=== PATIENT | female | born 1955 | race Caucasian/White ===

== ENCOUNTER → 2022-07-12 14:15 | Outpatient (CLI) | payer OTHER, SELFPAY | PROVIDERS: PCP Family Medicine; Referring Provider Family Medicine; Visit Provider Family Medicine | DX: Z13.820 Encounter for screening for osteoporosis (principal); M85.852 Other specified disorders of bone density and structure, left thigh; Z78.0 Asymptomatic menopausal state; E78.2 Mixed hyperlipidemia; I10 Essential (primary) hypertension; M17.12 Unilateral primary osteoarthritis, left knee; N95.2 Postmenopausal atrophic vaginitis; R73.03 Prediabetes; Z79.890 Hormone replacement therapy | CPT/HCPCS: 77080 ==

== ENCOUNTER → 2022-08-13 09:36 | Outpatient (CLI) | payer OTHER, SELFPAY ==
[2022-08-13 10:17] LABS: Add Manual Diff / Slide Review NO; Basophils Absolute Auto 100 /uL (0-100); Basophils Percent Auto 0.8 % (0-2); Eosinophils Absolute Auto 200 /uL (0-450); Eosinophils Percent Auto 2.4 % (2-4); Hematocrit 46.1 % (36-46); Hemoglobin 15.6 g/dL (12.0-16.0); Lymphocytes Absolute Auto 1900 /uL (1100-4500); Lymphocytes Percent Auto 30.1 % (25-40); Mean Corpuscular HGB Conc 33.8 % (30-36); Mean Corpuscular Hemoglobin 27.1 PG (26-34); Mean Corpuscular Volume 80.2 fL (80-100); Monocytes Absolute Auto 600 /uL (0-900); Monocytes Percent Auto 9.4 % (3-14); Neutrophils Absolute Auto 3600 /uL (1500-7000); Neutrophils Percent Auto 57.3 % (50-75); Platelet Count 297 X10^3/uL (150-400); Red Blood Cell Count 5.75 X10^6/uL (4.0-5.2); Red Cell Distribution Width 13.2 % (11.6-14.8); White Blood Cell Count 6.4 X10^3/uL (4.5-11.0)
[2022-08-13 10:32] LABS: Alanine Aminotransferase 17 IU/L (<35); Albumin 4.1 g/dL (3.5-5.0); Albumin Globulin Ratio 1.4 (1.0-2.8); Alkaline Phosphatase 109 U/L (38-126); Aspartate Aminotransferase 23 IU/L (14-36); BUN Creatinine Ratio 13.4 (6-22); Bilirubin Total 0.4 mg/dL (0.2-1.3); Blood Urea Nitrogen 13 mg/dL (7-17); Calcium 9.4 mg/dL (8.4-10.2); Carbon Dioxide 24 mmol/L (22-32); Chloride 108 mmol/L (98-107); Cholesterol 199 mg/dL (140-199); Estimated Glomerular Filt Rate > 60 mL/min (>60); Glucose 112 mg/dL (80-110); HDL Cholesterol 61 mg/dL (40-60); HEMOLYSIS < 15 (0-50); LDL Cholesterol Calculated 108 mg/dL (<100); Potassium 4.2 mmol/L (3.4-5.1); Sodium 140 mmol/L (137-145); Total Protein 7.1 g/dL (6.3-8.2); Triglycerides 151 mg/dL (35-150)
[2022-08-13 11:04] LABS: TSH w/ Reflex to FT4 1.98 uIU/mL (0.47-4.68)
[2022-08-13 11:25] LABS: Microalbumi Creatinin Ratio Ur 18.4 ug/mg CR (<30); Microalbumin Urine Random 5.2 mg/dL (0-1.6)
== END ==
PROVIDERS: PCP Family Medicine; Referring Provider Family Medicine; Visit Provider Family Medicine
DX: E78.2 Mixed hyperlipidemia (principal); I10 Essential (primary) hypertension; M17.12 Unilateral primary osteoarthritis, left knee; N95.1 Menopausal and female climacteric states; N95.2 Postmenopausal atrophic vaginitis; R73.03 Prediabetes
CPT/HCPCS: 36415; 80053; 80061; 82043; 82570; 84443; 85025

== ENCOUNTER → 2022-08-24 16:25 | Outpatient (CLI) | payer OTHER, SELFPAY ==
--- NOTE | 2022-08-24 16:27 | DI.MG.S_ITS ---
BILATERAL DIGITAL SCREENING MAMMOGRAM 3D/2D WITH CAD: 08/24/2022 CLINICAL: Routine screening. Comparison is made to exams dated: 01/12/2021 mammogram, 12/09/2018 mammogram, and 09/11/2017 mammogram - outside facility. Both breasts are almost entirely fatty (category a/<25% glandular tissue). Current study was also evaluated with a Computer Aided Detection (CAD) system. There is a stable benign focal asymmetry in the left breast. No significant masses, calcifications, or other findings are seen in either breast. There has been no significant interval change. IMPRESSION: BENIGN There is no mammographic evidence of malignancy. A 1 year screening mammogram is recommended. Based on the Tyrer Cuzick model (a risk assessment model) the patient's lifetime risk is 4.0% and her 10 year risk is 2.4%. According to the ACR, ACS, and NCCN guidelines, an annual breast MRI exam along with mammogram is recommended if the patient's lifetime risk is 20% or greater. This exam was interpreted at Station ID: [id number]. NOTE: For mammograms, a report in lay terms will be sent to the patient. Approximately 15% of breast malignancies will not be visualized mammographically. In the management of a palpable breast mass, a negative mammogram must not discourage biopsy of a clinically suspicious lesion. Electronically Signed By: Hi lieberman/brayden:08/24/2022 17:25:56 letter sent: Normal Exam ACR BI-RADS Category 2: Benign Finding(s) 3342F
== END ==
PROVIDERS: PCP Family Medicine; Referring Provider Family Medicine; Visit Provider Family Medicine
DX: Z12.31 Encounter for screening mammogram for malignant neoplasm of breast (principal)
CPT/HCPCS: 77063; 77067

== ENCOUNTER → 2022-10-09 13:26 | Outpatient (CLI) | payer OTHER, SELFPAY ==
[2022-10-09 14:21] LABS: Add Manual Diff / Slide Review NO; Basophils Absolute Auto 100 /uL (0-100); Basophils Percent Auto 0.8 % (0-2); Eosinophils Absolute Auto 100 /uL (0-450); Eosinophils Percent Auto 1.9 % (2-4); Hematocrit 47.2 % (36-46); Hemoglobin 15.6 g/dL (12.0-16.0); Lymphocytes Absolute Auto 1500 /uL (1100-4500); Lymphocytes Percent Auto 19.9 % (25-40); Mean Corpuscular HGB Conc 33.1 % (30-36); Mean Corpuscular Hemoglobin 26.9 PG (26-34); Mean Corpuscular Volume 81.1 fL (80-100); Monocytes Absolute Auto 700 /uL (0-900); Monocytes Percent Auto 9.8 % (3-14); Neutrophils Absolute Auto 5000 /uL (1500-7000); Neutrophils Percent Auto 67.6 % (50-75); Platelet Count 284 X10^3/uL (150-400); Red Blood Cell Count 5.82 X10^6/uL (4.0-5.2); White Blood Cell Count 7.4 X10^3/uL (4.5-11.0)
[2022-10-09 14:27] LABS: Hemoglobin A1C% w Est Avg Glu 5.7 % (4.0-6.0)
[2022-10-09 14:34] LABS: Albumin 4.2 g/dL (3.5-5.0); BUN Creatinine Ratio 15.1 (6-22); Blood Urea Nitrogen 16 mg/dL (7-17); Carbon Dioxide 25 mmol/L (22-32); Chloride 106 mmol/L (98-107); Estimated Glomerular Filt Rate 57 mL/min (>60); Glucose 96 mg/dL (80-110); HEMOLYSIS < 15 (0-50); Potassium 4.1 mmol/L (3.4-5.1); Sodium 140 mmol/L (137-145)
[2022-10-09 14:42] LABS: Prealbumin 29.4 mg/dL (17.6-36.0)
[2022-10-11 18:37] LABS: HIV 1 & 2 Ab/Ag 4th Gen Combo NEGATIVE (NEGATIVE); Hep C Virus Ab w/Reflex Quant NEGATIVE s/c (NEGATIVE)
== END ==
PROVIDERS: PCP Family Medicine; Referring Provider Orthopaedic Surgery; Visit Provider Orthopaedic Surgery
DX: Z01.812 Encounter for preprocedural laboratory examination (principal); Z01.810 Encounter for preprocedural cardiovascular examination; M17.12 Unilateral primary osteoarthritis, left knee
CPT/HCPCS: 36415; 80048; 82040; 83036; 84134; 85025; 86803; 87389; 93005; 93010

== ENCOUNTER → 2023-09-25 16:49 | Outpatient (CLI) | payer OTHER, SELFPAY ==
--- NOTE | 2023-09-25 16:50 | DI.MG.S_ITS ---
BILATERAL DIGITAL SCREENING MAMMOGRAM 3D/2D WITH CAD: 09/25/2023 CLINICAL: Routine screening. Comparison is made to exams dated: 08/24/2022 mammogram - [facility], 01/12/2021 mammogram, and 12/09/2018 mammogram - outside facility. There are scattered areas of fibroglandular density in both breasts (category b / 25%-50% glandular tissue). Current study was also evaluated with a Computer Aided Detection (CAD) system. There is a stable benign focal asymmetry in the left breast. No significant masses, calcifications, or other findings are seen in either breast. There has been no significant interval change. IMPRESSION: BENIGN There is no mammographic evidence of malignancy. A 1 year screening mammogram is recommended. Based on the Tyrer Cuzick model (a risk assessment model) the patient's lifetime risk is 5.7% and her 10 year risk is 3.7%. According to the ACR, ACS, and NCCN guidelines, an annual breast MRI exam along with mammogram is recommended if the patient's lifetime risk is 20% or greater. This exam was interpreted at Station ID: [id number]. NOTE: For mammograms, a report in lay terms will be sent to the patient. Approximately 15% of breast malignancies will not be visualized mammographically. In the management of a palpable breast mass, a negative mammogram must not discourage biopsy of a clinically suspicious lesion. Electronically Signed By: Raymundo allen/brayden:09/26/2023 08:32:40 letter sent: Normal Exam ACR BI-RADS Category 2: Benign Finding(s) 3342F
== END ==
PROVIDERS: PCP Family Medicine; Referring Provider Family Medicine; Visit Provider Family Medicine
DX: Z12.31 Encounter for screening mammogram for malignant neoplasm of breast (principal)
CPT/HCPCS: 77063; 77067

== ENCOUNTER → 2023-12-10 11:30 | Outpatient (CLI) | payer OTHER, SELFPAY ==
--- NOTE | 2023-12-10 11:32 | DI.RAD.S_ITS ---
PROCEDURE: XR SHOULDER RT MIN 2V INDICATIONS: right shoulder pain TECHNIQUE: 3 views of the shoulder were acquired. COMPARISON: None. FINDINGS: Bones: No fractures or dislocations. Moderate degenerative changes. No suspicious bony lesions. Visualized ribs appear intact. Soft tissues: No suspicious soft tissue calcifications. IMPRESSION: No acute bony abnormality. Dictated by: Jimmie Baldwin M.D. on 12/10/2023 at 16:26 Approved by: Jimmie Baldwin M.D. on 12/10/2023 at 16:27
[2023-12-10 12:44] LABS: Add Manual Diff / Slide Review NO; Basophils Absolute Auto 100 /uL (0-100); Basophils Percent Auto 1.1 % (0-2); Eosinophils Absolute Auto 100 /uL (0-450); Eosinophils Percent Auto 2.4 % (2-4); Hematocrit 45.1 % (36-46); Hemoglobin 15.2 g/dL (12.0-16.0); Lymphocytes Absolute Auto 1300 /uL (1100-4500); Lymphocytes Percent Auto 22.6 % (25-40); Mean Corpuscular HGB Conc 33.8 % (30-36); Mean Corpuscular Volume 79.9 fL (80-100); Monocytes Absolute Auto 600 /uL (0-900); Neutrophils Absolute Auto 3700 /uL (1500-7000); Neutrophils Percent Auto 62.9 % (50-75); Platelet Count 266 X10^3/uL (150-400); Red Blood Cell Count 5.64 X10^6/uL (4.0-5.2); Red Cell Distribution Width 13.5 % (11.6-14.8); White Blood Cell Count 5.9 X10^3/uL (4.5-11.0)
[2023-12-10 13:23] LABS: HEMOLYSIS < 15 (0-50); Potassium 3.9 mmol/L (3.4-5.1)
[2023-12-10 13:24] LABS: Alanine Aminotransferase 20 IU/L (<35); Albumin 4.3 g/dL (3.5-5.0); Albumin Globulin Ratio 1.4 (1.0-2.8); Alkaline Phosphatase 96 U/L (38-126); Aspartate Aminotransferase 30 IU/L (14-36); BUN Creatinine Ratio 15.4 (6-22); Bilirubin Total 0.6 mg/dL (0.2-1.3); Blood Urea Nitrogen 16 mg/dL (7-17); Calcium 9.7 mg/dL (8.4-10.2); Carbon Dioxide 27 mmol/L (22-32); Chloride 109 mmol/L (98-107); Cholesterol 228 mg/dL (140-199); Estimated Glomerular Filt Rate 58 mL/min (>60); Globulin 3.1 g/dL (1.7-4.1); Glucose 105 mg/dL (80-110); HDL Cholesterol 58 mg/dL (40-60); LDL Cholesterol Calculated 124 mg/dL (<100); Sodium 143 mmol/L (137-145); Total Protein 7.4 g/dL (6.3-8.2); Triglycerides 228 mg/dL (35-150)
[2023-12-10 13:44] LABS: TSH w/ Reflex to FT4 1.36 uIU/mL (0.47-4.68)
[2023-12-10 16:29] LABS: Creatinine Urine Random 104.7 mg/dL
[2023-12-10 16:33] LABS: Microalbumin Urine Random 4.3 mg/dL (0-1.6)
[2023-12-11 08:55] LABS: Apolipoprotein B 115 mg/dL (<90)
== END ==
PROVIDERS: PCP Family Medicine; Referring Provider Family Medicine; Visit Provider Family Medicine
DX: M25.511 Pain in right shoulder (principal); E78.5 Hyperlipidemia, unspecified; I10 Essential (primary) hypertension; G47.19 Other hypersomnia
CPT/HCPCS: 36415; 73030; 80053; 80061; 82043; 82172; 82570; 84443; 85025

== ENCOUNTER → 2024-09-12 10:53 | Outpatient (CLI) | payer OTHER, SELFPAY ==
[2024-09-12 12:15] LABS: HEMOLYSIS < 15 (0-50); Iron 94 ug/dL (37-170)
[2024-09-12 12:20] LABS: C-Reactive Protein Quant < 0.5 mg/dL (<1.0)
[2024-09-12 12:26] LABS: Percent Iron Saturation 34 % (15-50); Total Iron Binding Capacity 279 ug/dL (265-497); Transferrin 262 mg/dL (206-381)
[2024-09-12 18:09] LABS: Ferritin 52 ng/mL (11-264)
== END ==
PROVIDERS: PCP Family Medicine; Referring Provider Pediatrics; Visit Provider Family Medicine
DX: D50.9 Iron deficiency anemia, unspecified (principal); G25.81 Restless legs syndrome
CPT/HCPCS: 36415; 82728; 83540; 83550; 86140

== ENCOUNTER → 2024-12-16 11:39 | Outpatient (CLI) | payer MEDICARE, OTHER, SELFPAY ==
[2024-12-16 12:33] LABS: Add Manual Diff / Slide Review NO; Basophils Absolute Auto 0 /uL (0-100); Basophils Percent Auto 0.7 % (0-2); Eosinophils Absolute Auto 200 /uL (0-450); Eosinophils Percent Auto 2.4 % (2-4); Hematocrit 45.6 % (36-46); Hemoglobin 15.1 g/dL (12.0-16.0); Lymphocytes Absolute Auto 1500 /uL (1100-4500); Mean Corpuscular HGB Conc 33.1 % (30-36); Mean Corpuscular Hemoglobin 26.9 PG (26-34); Mean Corpuscular Volume 81.2 fL (80-100); Monocytes Absolute Auto 800 /uL (0-900); Monocytes Percent Auto 12.4 % (3-14); Neutrophils Absolute Auto 4100 /uL (1500-7000); Neutrophils Percent Auto 61.5 % (50-75); Platelet Count 275 X10^3/uL (150-400); Red Blood Cell Count 5.61 X10^6/uL (4.0-5.2); Red Cell Distribution Width 13.3 % (11.6-14.8); White Blood Cell Count 6.7 X10^3/uL (4.5-11.0)
[2024-12-16 12:59] LABS: Alanine Aminotransferase 29 IU/L (<35); Albumin 4.2 g/dL (3.5-5.0); Albumin Globulin Ratio 1.8 (1.0-2.8); Alkaline Phosphatase 99 U/L (38-126); Aspartate Aminotransferase 29 IU/L (14-36); BUN Creatinine Ratio 15.7 (6-22); Bilirubin Total 0.5 mg/dL (0.2-1.3); Blood Urea Nitrogen 16 mg/dL (7-17); Calcium 9.6 mg/dL (8.4-10.2); Carbon Dioxide 21 mmol/L (22-32); Chloride 109 mmol/L (98-107); Cholesterol 153 mg/dL (140-199); Estimated Glomerular Filt Rate 59 mL/min (>60); Globulin 2.4 g/dL (1.7-4.1); Glucose 113 mg/dL (80-110); HDL Cholesterol 54 mg/dL (40-60); HEMOLYSIS < 15 (0-50); LDL Cholesterol Calculated 66 mg/dL (<100); Potassium 3.7 mmol/L (3.4-5.1); Sodium 141 mmol/L (137-145); Total Protein 6.6 g/dL (6.3-8.2); Triglycerides 163 mg/dL (35-150)
[2024-12-16 15:13] LABS: Creatinine Urine Random 254.16 mg/dL
[2024-12-16 15:39] LABS: Microalbumin Urine Random 24.9 mg/dL (0-1.6)
[2024-12-17 03:36] LABS: Apolipoprotein B 74 mg/dL (<90)
== END ==
PROVIDERS: PCP Family Medicine; Referring Provider Family Medicine; Visit Provider Family Medicine
DX: E78.5 Hyperlipidemia, unspecified (principal); I10 Essential (primary) hypertension; R73.03 Prediabetes
CPT/HCPCS: 36415; 80053; 80061; 82043; 82172; 82570; 85025

== ENCOUNTER → 2025-02-12 12:11 | Outpatient (CLI) | payer MEDICARE, OTHER, SELFPAY ==
[2025-02-12 15:36] LABS: C-Reactive Protein Quant < 0.5 mg/dL (<1.0)
[2025-02-12 15:42] LABS: Total Iron Binding Capacity 313 ug/dL (265-497)
[2025-02-12 16:09] LABS: Ferritin 82 ng/mL (11-264)
[2025-02-14 18:45] LABS: HEMOLYSIS < 15 (0-50); Transferrin 264 mg/dL (206-381)
[2025-02-14 19:07] LABS: Iron 80 ug/dL (37-170); Percent Iron Saturation 26 % (15-50)
== END ==
PROVIDERS: PCP Family Medicine; Referring Provider Pediatrics; Visit Provider Pediatrics
DX: D50.9 Iron deficiency anemia, unspecified (principal)
CPT/HCPCS: 36415; 82728; 83540; 83550; 86140

== ENCOUNTER → 2025-08-03 08:33 | Outpatient (CLI) | payer MEDICARE, OTHER, SELFPAY ==
[2025-08-03 10:24] LABS: Add Manual Diff / Slide Review NO; Hematocrit 46.5 % (36-46); Hemoglobin 15.7 g/dL (12.0-16.0); Lymphocytes Absolute Auto 1700 /uL (1100-4500); Mean Corpuscular HGB Conc 33.7 % (30-36); Mean Corpuscular Hemoglobin 27.1 PG (26-34); Mean Corpuscular Volume 80.5 fL (80-100); Platelet Count 261 X10^3/uL (150-400)
[2025-08-03 10:39] LABS: HEMOLYSIS < 15 (0-50); Iron 90 ug/dL (37-170)
[2025-08-03 10:44] LABS: Alanine Aminotransferase 25 IU/L (<35); Albumin 4.2 g/dL (3.5-5.0); Albumin Globulin Ratio 1.6 (1.0-2.8); Alkaline Phosphatase 92 U/L (38-126); Blood Urea Nitrogen 17 mg/dL (7-17); Calcium 9.5 mg/dL (8.4-10.2); Carbon Dioxide 26 mmol/L (22-32); Chloride 105 mmol/L (98-107); Estimated Glomerular Filt Rate 56 mL/min (>60); Globulin 2.6 g/dL (1.7-4.1); Glucose 106 mg/dL (70-99); HEMOLYSIS < 15 (0-50); Potassium 4.0 mmol/L (3.4-5.1); Sodium 140 mmol/L (137-145); Total Protein 6.8 g/dL (6.3-8.2)
[2025-08-03 10:53] LABS: Percent Iron Saturation 30 % (15-50); Total Iron Binding Capacity 300 ug/dL (265-497); Transferrin 279 mg/dL (206-381)
[2025-08-03 11:08] LABS: Hemoglobin A1C% w Est Avg Glu 5.5 % (4.0-6.0)
[2025-08-03 11:11] LABS: TSH w/ Reflex to FT4 1.83 uIU/mL (0.47-4.68)
[2025-08-03 11:19] LABS: Ferritin 84 ng/mL (11-264)
[2025-08-03 14:33] LABS: Microalbumi Creatinin Ratio Ur 28.0 ug/mg CR (<30)
== END ==
PROVIDERS: PCP Family Medicine; Referring Provider Pediatrics; Visit Provider Pediatrics
DX: D50.9 Iron deficiency anemia, unspecified (principal); R73.03 Prediabetes; E78.2 Mixed hyperlipidemia; G25.81 Restless legs syndrome; I10 Essential (primary) hypertension
CPT/HCPCS: 80053; 82043; 82570; 82728; 83036; 83540; 83550; 84443; 85025; 86140

== ENCOUNTER → 2025-09-01 08:48 | Outpatient (CLI) | payer MEDICARE, OTHER, SELFPAY ==
--- NOTE | 2025-09-01 08:49 | DI.MG.S_ITS ---
MM screening mammo BI: 09/01/2025. BI-RADS: 1 CLINICAL: 70-year old female for bilateral screening mammogram. Tyrer-Cuzick lifetime risk of 4.4%. No personal or first-degree family history of breast cancer. PRIOR EXAMS 09/25/2023, 08/24/2022, outside films 01/12/2021, 12/09/2018. MAMMOGRAPHY TECHNIQUE: 2D and 3D (tomosynthesis) digital mammographic views obtained, with additional images as needed for full coverage. Current study was also evaluated with a Computer Aided Detection (CAD) system. DENSITY B. There are scattered areas of fibroglandular density. MAMMOGRAPHY FINDINGS Bilateral: No suspicious mass, asymmetry, microcalcification, or other abnormality seen. IMPRESSION: * No evidence of malignancy. RECOMMENDATIONS Bilateral * Annual screening mammography. OVERALL ASSESSMENT CATEGORY BI-RADS-1: Negative. The [employer] recommends annual screening mammography beginning at age 40 for women with average risk of breast cancer. ELECTRONICALLY SIGNED: Carmen Arias M.D. on 09/01/2025 at 02:37:41 PM PT Interpreting Station ID: [id number]
== END ==
LOC: MAMMO 08:49
PROVIDERS: PCP Family Medicine; Referring Provider Family Medicine; Visit Provider Family Medicine
DX: Z12.31 Encounter for screening mammogram for malignant neoplasm of breast (principal)
CPT/HCPCS: 77063; 77067

== ENCOUNTER 2025-09-22 12:15 | Outpatient (RCR) | payer MEDICARE, OTHER, SELFPAY ==
--- NOTE | 2025-07-01 17:40 | PT.OIE ---
Current Diagnoses Impingement syndrome of right shoulder (07/01/25) Past Medical History (Last Updated 06/28/22 @ 22:07 by Estefany Steward) Allergies Anxiety Asthma Atrophic vaginitis Bleeding of eye Cataracts, bilateral (~2012) Chicken pox Chronic back pain (~2015) Colon polyps (~2018) Depression Dry eyes (~2009) Dryness of vagina (~2009) Dupuytren contracture Endometriosis (~1993) Eustachian tube dysfunction (~2017) Fibroids (~1993) Hearing loss (~2017) Heavy menstrual period (~1969) Hemorrhoid (~1998) History of recurrent ear infection History of urinary incontinence (~2009) Hyperlipidemia Hypertension Infertility (~1993) Kidney damage (~2017) Measles Mumps Osteoarthritis of left knee Osteoarthritis of right knee Osteopenia (~2017) Ruptured tympanic membrane Shoulder pain (~2021) Skin cancer (~2009) Skin rash Sleep apnea (~2020) Vertigo (~2017) Wears glasses Past Surgical History (Last Updated 06/28/22 @ 22:07 by Estefany Steward) Anesthesia Fibroids (~1995) History of cataract removal with insertion of prosthetic lens (~2012) History of knee replacement (~2013) History of tonsillectomy (~1956) Visit Care Team Role Provider Type Omar Tillman MD Family Provider Physician Primary Care Provider Specialty: Family Practice Address: [address] [place] [address] Email: [email or web address] Ajit Zavala MD Attending Provider Physician Referring Provider Specialty: Orthopedics Orthopedic Surgery Address: [address] [place] [address], [facility] Fax: Email: [email or web address] Physical Therapy Initial Evaluation PT OP: Cervical/Upper Extremity Start: 07/01/25 11:33 Freq: Status: Active Protocol: Document 07/01/25 11:30 DCW (Rec: 07/01/25 15:18 DCW [id number]) Out-Patient Physical Therapy Visit Information Visit Information Visit Type Initial Evaluation Visit Start Time 11:30 Visit Stop Time 12:15 Visit Number 1 Number of SUBSTATION ELECTRICIAN Visits 0 Progress Note Due 07/31/25 Evaluation Information Evaluation Date 07/01/25 Current Condition History of Current Condition Onset Date Two year history Current Complaints Right shoulder pain, stiffness History of Current Pt is a 70 year old female presenting with a two year Condition history of right shoulder pain and decreased mobility. Pt reports pain was sudden onset, does not remember any recent injuries. Pt reports she saw a ortho two years ago, was told her shoulder is a mess and you need it replaced, but reports she had already had two knee replacements that year and didn't want another surgery, so she tried an injection, which worked somewhat well. Has had occasional injections since then, but has recently gotten a new ortho, who felt a trial of PT may be beneficial. Pt reports x-rays show degeneration, but no further imaging has been performed yet. Reports reaching overhead, behind her back, and across her body are all quite painful. Locates pain mainly along the lateral shoulder. Prior Treatments and R shoulder x-ray: IMPRESSION: Degeneration per Jaylan Hernandez M.D. on 04/14/2025 OP-PT Subjective Patient Comments Patient Comments I feel pretty good as long as I don't do anything with this arm. Patient Reported Worse Progress Patient Questionnaires Quick Dash- Upper Extremity Quick Dash UE Score 20% Shoulder Goniometric Range of Motion Shoulder Right Active Shoulder ROM WFL No Testing Position Sitting Flexion 118 Extension 40 Abduction 98 External Rotation at 37 0 degrees Abduction Internal Rotation T12 Behind Back (text) Left Active Testing Position Sitting Flexion 155 Extension 55 Abduction 160 External Rotation at 70 0 degrees Abduction Internal Rotation T8 Behind Back (text) Special Tests Shoulder Special Tests Passive ER Rotator Cuff Test Results Positive R Painful Arc Test Results Positive R Lift-Off Rotator Cuff Test Results Positive R Mercer Abelino Impingement Test Results Positive R Grind Labrum Test Results Negative Empty Can Test Results Negative Drop Arm Rotator Cuff Test Results Negative Clunk Test Test Results Negative Belly Press Test Results Positive R Apprehension Test Test Results Positive R Shoulder Strength Shoulder Manual Muscle Testing Right Flexion 4- Good- Abduction (C5) 4- Good- External Rotation 3+ Fair+ Internal Rotation 4- Good- Left Flexion 4+ Good+ Abduction (C5) 4+ Good+ External Rotation 4+ Good+ Internal Rotation 4+ Good+ Therapeutic Exercises Standing Exercises Shoulder Extension Standing Exercise Shoulder Extension Name Side bilateral Resistance Lv 2 Shoulder ER/IR Standing Exercise Shoulder ER/IR Name Side bilateral Resistance Lv 2 Physical Therapy Assessment Rehab Potential Rehabilitation Good Potential Evaluation Complexity Number of Personal 3 or More Factors/ Comorbidities Number of Body 4 or More Systems Impaired Clinical Unstable Presentation at Evaluation Impairments Impairments Activity Tolerance,Functional Activities,Functional Mobility,Pain,ROM,Soft Tissue Mobility,Strength,Tone Goals Two Impairment Limited right shoulder mobility (flexion 118?, abduction 98?) Cctv Technician Goal (LTG) Pt to demonstrate right shoulder flexion and abduction AROM to >135? in order to improve activities requiring overhead reach LTG Duration 09/29/25 One Impairment Pt does not have an appropriate home exercise program Mcfp Goal (LTG) Pt to demonstrate ability to correctly perform four home exercises without instruction in order to display independence with HEP LTG Duration 09/29/25 Assessment Summary Assessment Pt presents with signs and symptoms consistent with referring diagnosis. Pt demonstrates limited right shoulder mobility, weakness, and shoulder pain with most movements. Proper DDx difficult to attempt currently, pt exhibits positive/painful response with most testing. Location of pain along lateral shoulder and in subacromial space could indicate supraspinatus involvement/impingement, however testing may also indicate labral involvement or GH degenerative changes. Pt will likely benefit from skilled therapy focusing on improving shoulder strength and mobility, joint mobs , STM, and pain control. If pt does not progress as expected, may indicate need for further advanced imaging. Physical Therapy Plan Frequency and Duration Frequency of 2x/Week Treatment Plan of Care Start 07/01/25 Date Plan of Care End 09/29/25 Date Therapeutic Interventions Therapeutic Home Exercise Program,Joint Mobilizations,Manual Interventions Therapy,Neuromuscular Re-education,Patient/Caregiver Education,Self-Care/Home Management,Soft Tissue Mobilization,Therapeutic Activities,Therapeutic Exercises Modalities Cold Pack/Ice Massage,Electric Stimulation,Hot Packs, Ultrasound Next Visit Focus/Plan Next Note Type Treatment Note Next Visit Plan Shoulder strengthening, joint mobs, STM, stretching
--- NOTE | 2025-07-06 18:00 | PT.OTN ---
Current Diagnoses Impingement syndrome of right shoulder (07/06/25) Physical Therapy Treatment Note PT OP: Cervical/Upper Extremity Start: 07/01/25 11:33 Freq: Status: Active Protocol: Document 07/06/25 16:13 AB (Rec: 07/06/25 17:02 AB [id number]) Out-Patient Physical Therapy Visit Information Visit Information Visit Type Treatment Note Visit Note Access Code [email or web address] Visit Start Time 16:17 Visit Stop Time 17:01 Visit Number 2 Number of PROPERTY MANAGEMENT ACCOUNTANT Visits 1 Progress Note Due 07/31/25 OP-PT Subjective Patient Comments Patient Comments Patient reports she is about the same, but reaching back for seatbelt is a little less painful. AROM R shoulder flexion 128 deg start of session. Therapeutic Exercises Supine Exercises shoulder flexion Supine Exercise Name 1. AROM from hooklying HEP2. reclined HEP Reps/Minutes 1 X 5 with 10 sec hold 2. X 10 with 3 sec hold Comments verbal cues to lead thumb and for hold Standing Exercises L stretch Side bilateral Reps/Minutes X 10 for 10 sec Comments Verbal and visual cues Row Standing Exercise HEP Name Resistance level 2 band Reps/Minutes X 15 Comments verbal and and tactile cues for shoulders back and down Shoulder Extension Standing Exercise Shoulder Extension Name Side bilateral Resistance Lv 2 Reps/Minutes X 15 Comments Verbal cues for avoiding UT acativation, VC for dec velocity with eccentric Shoulder ER/IR Standing Exercise Shoulder ER/IR Name Side bilateral Resistance Lv 2 Reps/Minutes X 15 Comments monitored for pain and VC to dec UT activation Manual Therapy Treatment Consent Patient gave verbal Yes consent for manual treatment Soft Tissue Mobilization R UT, pec post cuff Mobilization Type Cross-Friction,Rolling,Sustained Pressure Intensity/Depth Superficial Body Position Hooklying Comments sidelying and seated Joint Mobilizations scapular mobilization Joint R Direction into dep and add Grade IV Body Position Sidelying Reps/Duration X 10 each direction R shoulder Joint GH AP and inf Grade IV Physical Therapy Assessment Goals Two Impairment Limited right shoulder mobility (flexion 118?, abduction 98?) Apron Man Goal (LTG) Pt to demonstrate right shoulder flexion and abduction AROM to >135? in order to improve activities requiring overhead reach LTG Duration 09/29/25 One Impairment Pt does not have an appropriate home exercise program Mcfp Goal (LTG) Pt to demonstrate ability to correctly perform four home exercises without instruction in order to display independence with HEP LTG Duration 09/29/25 Assessment Summary Assessment AROM R shoulder flexion 135 deg end of session. Patient reports R UE is a little tender, but wouldn't call it sore end of session. Physical Therapy Plan Frequency and Duration Frequency of 2x/Week Treatment Plan of Care Start 07/01/25 Date Plan of Care End 09/29/25 Date Next Visit Focus/Plan Next Note Type Treatment Note Next Visit Plan Shoulder strengthening, joint mobs, STM, stretching
--- NOTE | 2025-07-08 12:22 | PT.OTN ---
Current Diagnoses Impingement syndrome of right shoulder (07/08/25) Physical Therapy Treatment Note PT OP: Cervical/Upper Extremity Start: 07/01/25 11:33 Freq: Status: Active Protocol: Document 07/08/25 11:33 AB (Rec: 07/08/25 12:21 AB [id number]) Out-Patient Physical Therapy Visit Information Visit Information Visit Type Treatment Note Visit Note Access Code [email or web address] Visit Start Time 11:35 Visit Stop Time 12:18 Visit Number 3 Number of CITY BUS DRIVER Visits 2 Progress Note Due 07/31/25 OP-PT Subjective Patient Comments Patient Comments Patient reports she is good physically, but took a caffeine supplement that didn't feel good once it wore off. AROM R shoulder flexion 124 deg Therapeutic Exercises Supine Exercises Reclined mini band Supine Exercise Name shoulder ER with flexion Side bilateral Resistance single thickness level one band Reps/Minutes X 10 Comments verbal cues monitored for pain shoulder flexion Supine Exercise Name 1. AROM from hooklying HEP2. reclined HEP Reps/Minutes 1. X 10 with 10 sec hold post manual 2. reclined with 1 lbX2 X 5w/o weight Comments Verbal cues for full hold 10 sec, monitored for pain with weight Sidelying Exercises shoulder ER and IR Side right Reps/Minutes X 10 Comments Verbal and tactile Manual Therapy Treatment Consent Patient gave verbal Yes consent for manual treatment Soft Tissue Mobilization R UT, pec post cuff Mobilization Type Cross-Friction,Rolling,Sustained Pressure Intensity/Depth Superficial Body Position Hooklying Comments sidelying and seated Joint Mobilizations scapular mobilization Joint R Direction into dep and add Grade IV Body Position Sidelying Reps/Duration X 10 each direction R shoulder Joint GH AP and inf Grade IV Manual Techniques PROM ER IR Type PROM ER and IR Body Location R shoulder Body Position Hooklying Reps/Duration X10 Physical Therapy Assessment Goals Two Impairment Limited right shoulder mobility (flexion 118?, abduction 98?) Nursing Home Goal (LTG) Pt to demonstrate right shoulder flexion and abduction AROM to >135? in order to improve activities requiring overhead reach LTG Duration 09/29/25 One Impairment Pt does not have an appropriate home exercise program Matrix Plater Goal (LTG) Pt to demonstrate ability to correctly perform four home exercises without instruction in order to display independence with HEP LTG Duration 09/29/25 Assessment Summary Assessment Patient with decreased henry to reclined flexion with 1lb , reports pain with raising and lowering, but no pain with raising and lowering with Mini band ( ER with flexion.) AROM R shoulder flexion 142 deg end of session. Physical Therapy Plan Frequency and Duration Frequency of 2x/Week Treatment Plan of Care Start 07/01/25 Date Plan of Care End 09/29/25 Date Next Visit Focus/Plan Next Note Type Treatment Note Next Visit Plan Shoulder strengthening, joint mobs, STM, stretching Possibly reclined shoulder flexion with level one band ER to HEP
--- NOTE | 2025-07-12 17:50 | PT.OTN ---
Current Diagnoses Impingement syndrome of right shoulder (07/12/25) Physical Therapy Treatment Note PT OP: Cervical/Upper Extremity Start: 07/01/25 11:33 Freq: Status: Active Protocol: Document 07/12/25 17:05 DCW (Rec: 07/12/25 17:50 DCW [id number]) Out-Patient Physical Therapy Visit Information Visit Information Visit Type Treatment Note Visit Note Access Code [email or web address] Visit Start Time 17:05 Visit Stop Time 17:45 Visit Number 4 Number of DINING ROOM MAID Visits 0 Progress Note Due 07/31/25 Evaluation Information Evaluation Date 07/01/25 OP-PT Subjective Patient Comments Patient Comments Pt feeling pretty good today, does note some of her shoulder exercises bother her back a bit. Therapeutic Exercises Supine Exercises ER/IR Supine Exercise Name ER/IR in 90/90 Side right Resistance 3.3# red ball Prone Exercises Rows Prone Exercise Name Prone Rows Side right I's, Y's, T's Prone Exercise Name I's, Y's, T's Side right Comments Mild pain with horizontal abduction Standing Exercises Shoulder Abduction Standing Exercise Shoulder Abduction Name Side bilateral Resistance Lv 3 Shoulder Flexion Standing Exercise Shoulder Flexion Name Side bilateral Resistance Lv 3 Manual Therapy Treatment Consent Patient gave verbal Yes consent for manual treatment Soft Tissue Mobilization R UT, pec post cuff Mobilization Type Cross-Friction,Rolling,Sustained Pressure Intensity/Depth Superficial Body Position Hooklying Comments sidelying and seated Joint Mobilizations scapular mobilization Joint R Direction into dep and add Grade III Body Position Sidelying Reps/Duration x10 each direction R shoulder Joint GH AP and inf Grade III Manual Techniques PROM ER IR Type PROM ER and IR Body Location R shoulder Body Position Hooklying Reps/Duration x15 Physical Therapy Assessment Goals Two Impairment Limited right shoulder mobility (flexion 118?, abduction 98?) Penitentiary Goal (LTG) Pt to demonstrate right shoulder flexion and abduction AROM to >135? in order to improve activities requiring overhead reach LTG Duration 09/29/25 One Impairment Pt does not have an appropriate home exercise program Penitentiary Goal (LTG) Pt to demonstrate ability to correctly perform four home exercises without instruction in order to display independence with HEP LTG Duration 09/29/25 Assessment Summary Assessment Pt continues to progress with AROM, Flexion measured at 145?, Abduction at 134? today. Showing good progress with strengthening and functional mobility. Physical Therapy Plan Frequency and Duration Frequency of 2x/Week Treatment Plan of Care Start 07/01/25 Date Plan of Care End 09/29/25 Date Next Visit Focus/Plan Next Note Type Treatment Note Next Visit Plan Shoulder strengthening, joint mobs, STM, stretching Possibly reclined shoulder flexion with level one band ER to HEP
--- NOTE | 2025-07-14 12:26 | PT.OTN ---
Current Diagnoses Impingement syndrome of right shoulder (07/14/25) Physical Therapy Treatment Note PT OP: Cervical/Upper Extremity Start: 07/01/25 11:33 Freq: Status: Active Protocol: Document 07/14/25 11:29 AB (Rec: 07/14/25 12:24 AB [id number]) Out-Patient Physical Therapy Visit Information Visit Information Visit Type Treatment Note Visit Note Access Code [email or web address] Visit Start Time 11:37 Visit Stop Time 12:22 Visit Number 5 Number of MANAGER OF CUSTOMER BILLING Visits 1 Progress Note Due 07/31/25 OP-PT Subjective Patient Comments Patient Comments Patient reports she thought she was worse last night was watching TV and had pain all of a sudden, but pain is not to bad today. AROM R shoulder flexion 129 deg Therapeutic Exercises Supine Exercises serratus punch Reps/Minutes X 15 with 1 lb weight Comments Verbal cues Reclined mini band Supine Exercise Name shoulder ER with flexion Side bilateral Resistance single thickness level one band Reps/Minutes X 10 Comments review, monitored for pain Sidelying Exercises shoulder ER and IR Side right Reps/Minutes X 10 without weight and with 1 # X 10 each Comments Verbal and tactile Manual Therapy Treatment Consent Patient gave verbal Yes consent for manual treatment Soft Tissue Mobilization R UT, pec post cuff Mobilization Type Cross-Friction,Rolling,Sustained Pressure Intensity/Depth Superficial Body Position Hooklying Comments sidelying and seated Joint Mobilizations scapular mobilization Joint R Direction into dep and add Grade III Body Position Sidelying Reps/Duration x10 each direction R shoulder Joint GH AP and inf Grade III Manual Techniques PROM ER IR Type PROM ER Body Location R shoulder Body Position Sidelying Reps/Duration X 12 Physical Therapy Assessment Goals Two Impairment Limited right shoulder mobility (flexion 118?, abduction 98?) Platform Engineer Goal (LTG) Pt to demonstrate right shoulder flexion and abduction AROM to >135? in order to improve activities requiring overhead reach LTG Duration 09/29/25 One Impairment Pt does not have an appropriate home exercise program Platform Engineer Goal (LTG) Pt to demonstrate ability to correctly perform four home exercises without instruction in order to display independence with HEP LTG Duration 09/29/25 Assessment Summary Assessment AROM R shoulder flexion 136 deg end of session. Patient reports feeling good end of session. Physical Therapy Plan Frequency and Duration Frequency of 2x/Week Treatment Plan of Care Start 07/01/25 Date Plan of Care End 09/29/25 Date Next Visit Focus/Plan Next Note Type Treatment Note Next Visit Plan Shoulder strengthening, joint mobs, STM, stretching possibly focus on rows next session
--- NOTE | 2025-08-10 11:39 | PT.OTN ---
Current Diagnoses Impingement syndrome of right shoulder (08/10/25) Physical Therapy Treatment Note PT OP: Cervical/Upper Extremity Start: 07/01/25 11:33 Freq: Status: Active Protocol: Document 08/10/25 10:59 NBM (Rec: 08/10/25 11:39 NBM Laptop) Out-Patient Physical Therapy Visit Information Visit Information Visit Type Treatment Note Visit Start Time 10:53 Visit Stop Time 11:35 Visit Number 6 Number of TANK REFINISHER Visits 2 Progress Note Due 07/31/25 Evaluation Information Evaluation Date 07/01/25 OP-PT Subjective Patient Comments Patient Comments Faith reports current pain 1/10 when at rest but 3/10 when reaching across hip with R arm. She admits to not being consistent with home exercises since not having PT for two weeks. Therapeutic Exercises Sitting Exercises cervical stretches Sitting Exercise added to HEP 1. UT 2. LS 3. Scalenes Name Side bilateral Equipment Used HO given Reps/Minutes 30 ea Comments cues chin tuck, breath Standing Exercises Shoulder Abduction Standing Exercise Shoulder Abduction Name Side right Resistance Lv 3 Comments scap setting, pt self-correcgts for abd vs flex after initial cues. Shoulder Flexion Standing Exercise Shoulder Flexion Name Side bilateral Resistance Lv 3 anchored at wall Reps/Minutes x15 ea Comments initial cues scap setting, chin tuck Row Standing Exercise HEP Name Side bilateral Resistance level 2 band Reps/Minutes X 15 Comments scapular setting, head position, kwesi discomfort resolves w/ cue no hyperext Shoulder Extension Standing Exercise Shoulder Extension Name Side bilateral Resistance Lv 2 Reps/Minutes X 15 Comments TC scapular setting, avoiding UT acativation, slower pacing Shoulder ER/IR Standing Exercise Shoulder ER/IR Name Side bilateral Resistance Lv 2 Reps/Minutes X 15 Comments monitored for pain and VC to dec UT activation Self-Care/Home Management Treatment Education Other Education Edu w/ visual aid for shoulder complex and importance of scapular setting with ADLs and HEP, and how to incorporate into HEP for improved scapular stabilization - HO given. Physical Therapy Assessment Goals Two Impairment Limited right shoulder mobility (flexion 118?, abduction 98?) Residential Goal (LTG) Pt to demonstrate right shoulder flexion and abduction AROM to >135? in order to improve activities requiring overhead reach LTG Duration 09/29/25 One Impairment Pt does not have an appropriate home exercise program Residential Goal (LTG) Pt to demonstrate ability to correctly perform four home exercises without instruction in order to display independence with HEP LTG Duration 09/29/25 Assessment Summary Assessment Faith presents after several weeks without PT and admits to struggling with HEP. She demonstrates UT overactivation at start of session. Treatment focus on education for scapular setting with remi pimentel and HEP review with discussion for troubleshooting barriers to compliance for HEP performance at home. R shoulder pain with reaching across hip improves from 3/10 start of session to even 0 out of 10 end of session. Physical Therapy Plan Frequency and Duration Frequency of 2x/Week Treatment Plan of Care Start 07/01/25 Date Plan of Care End 09/29/25 Date Next Visit Focus/Plan Next Note Type Treatment Note Next Visit Plan Shoulder strengthening, joint mobs, STM, stretching possibly focus on rows next session
--- NOTE | 2025-08-23 11:15 | PT.OTN ---
Current Diagnoses Impingement syndrome of right shoulder (08/23/25) Physical Therapy Treatment Note PT OP: Cervical/Upper Extremity Start: 07/01/25 11:33 Freq: Status: Active Protocol: Document 08/23/25 08:05 JVD (Rec: 08/23/25 11:15 JVD [id number]) Out-Patient Physical Therapy Visit Information Visit Information Visit Type Treatment Note Visit Start Time 08:15 Visit Stop Time 09:00 Visit Number 7 Number of INTERNAL COMMUNICATIONS INTERN Visits 0 Progress Note Due 07/31/25 Evaluation Information Evaluation Date 07/01/25 OP-PT Subjective Patient Comments Patient Comments Faith reports she drove back from [place] last night which seems to have aggravated her shoulder a bit. Her pain was hovering between a 1 and 10 last night. Therapeutic Exercises Supine Exercises shoulder flexion Supine Exercise Name supine AAROM flex Side bilateral Equipment Used dowel Reps/Minutes 10sec hold x10 Comments pt was cued to maintain pain-free ROM Standing Exercises Shoulder Abduction Standing Exercise Shoulder Abduction (reverse: OH attachment to correct Name scapular mechanics) Side right Resistance Lv 3 Reps/Minutes 15x2 Comments cuing for proper scapular-humeral rhythm. Shoulder Flexion Standing Exercise Shoulder Flexion (w hor abduction) Name Side bilateral Resistance lvl 1 Reps/Minutes 15x2 Comments initial cues scap setting, chin tuck Row Side bilateral Resistance level 2 band Reps/Minutes 15x2 Comments scapular setting, head position, kwesi discomfort resolves w/ cue no hyperext Shoulder Extension Standing Exercise Shoulder Extension Name Side bilateral Resistance Lv 2 Reps/Minutes 15x2 Comments TC scapular setting, avoiding UT acativation, slower pacing Shoulder ER/IR Standing Exercise seated B ER Name Resistance lvl 1 Reps/Minutes 15x2 Comments cued to depress shoulders and rotate arm Manual Therapy Treatment Soft Tissue Mobilization R UT, pec post cuff Body Location UT, proximal bieps, pecs Mobilization Type Cross-Friction,Rolling,Sustained Pressure Intensity/Depth Superficial Body Position Hooklying Comments sidelying and seated Joint Mobilizations R shoulder Joint GH AP and inf Direction w passive ER, flex, and abd Grade III Body Position Supine Reps/Duration 5 min Physical Therapy Assessment Goals Two Impairment Limited right shoulder mobility (flexion 118?, abduction 98?) Snf Goal (LTG) Pt to demonstrate right shoulder flexion and abduction AROM to >135? in order to improve activities requiring overhead reach LTG Duration 09/29/25 One Impairment Pt does not have an appropriate home exercise program Snf Goal (LTG) Pt to demonstrate ability to correctly perform four home exercises without instruction in order to display independence with HEP LTG Duration 09/29/25 Assessment Summary Assessment Pt presents to PT w 3/10 R shoulder pain. Symptoms are worst when reaching across. She has TTP of proximal biceps and demonstrated restricted ER, flex, and abd. OH motion improved w jt mobilizations and repetitive motion. Pt had a good response to motor retraining exercises to improve scapular-humeral rhythm. Physical Therapy Plan Frequency and Duration Frequency of 2x/Week Treatment Plan of Care Start 07/01/25 Date Plan of Care End 09/29/25 Date Next Visit Focus/Plan Next Note Type Treatment Note Next Visit Plan Shoulder strengthening, joint mobs, STM, stretching, SA wall climbs
--- NOTE | 2025-08-25 11:29 | PT.OTN ---
Current Diagnoses Impingement syndrome of right shoulder (08/25/25) Physical Therapy Treatment Note PT OP: Cervical/Upper Extremity Start: 07/01/25 11:33 Freq: Status: Active Protocol: Document 08/25/25 10:37 JVD (Rec: 08/25/25 11:29 JVD [id number]) Out-Patient Physical Therapy Visit Information Visit Information Visit Type Treatment Note Visit Start Time 10:45 Visit Stop Time 11:27 Visit Number 8 Number of TELECOM NETWORK MANAGER Visits 0 Progress Note Due 07/31/25 OP-PT Subjective Patient Comments Patient Comments Faith reports her shoulder pain is 2/10 this morning. She is able to reach for her seatbelt now but it is still painful when reaching back. Therapeutic Exercises Supine Exercises shoulder flexion Supine Exercise Name supine AAROM flex Side bilateral Equipment Used 2.5# bar Reps/Minutes 10sec hold x10 Comments pt was cued to maintain pain-free ROM Standing Exercises biceps curls Side bilateral Resistance 5# DB Reps/Minutes 10 Comments cued to keep shoulders down and back w slight ER SA wall climb Resistance lvl3 TB Reps/Minutes 5x2 Comments cued to keep arms parallel in order to engage SA and infra SA foam roller up wall Standing Exercise Shoulder flex w foam roller for SA Name Reps/Minutes 10x2 Comments cued to apply pressure into roller to engage SA Shoulder Flexion Standing Exercise Shoulder Flexion (w hor abduction) Name Side bilateral Resistance lvl 1 Reps/Minutes 15x2 Comments initial cues scap setting, chin tuck Row Side bilateral Resistance x-heavy band Reps/Minutes 15x2 Comments scapular setting, head position, kwesi discomfort resolves w/ cue no hyperext Shoulder Extension Standing Exercise Shoulder Extension Name Side bilateral Resistance heavy Reps/Minutes 15x2 Comments TC scapular setting, avoiding UT acativation, slower pacing Shoulder ER/IR Standing Exercise seated B ER Name Resistance lvl 1 Reps/Minutes 15x2 Comments cued to depress shoulders and rotate arm Manual Therapy Treatment Soft Tissue Mobilization R UT, pec post cuff Body Location UT, proximal bieps, pecs Mobilization Type Cross-Friction,Rolling,Sustained Pressure Intensity/Depth Superficial Body Position Hooklying Comments sidelying and seated Joint Mobilizations R shoulder Joint GH AP and inf Direction w passive ER, flex, and abd Grade III Body Position Supine Reps/Duration 5 min Physical Therapy Assessment Goals Two Impairment Limited right shoulder mobility (flexion 118?, abduction 98?) Jail Goal (LTG) Pt to demonstrate right shoulder flexion and abduction AROM to >135? in order to improve activities requiring overhead reach LTG Duration 09/29/25 One Impairment Pt does not have an appropriate home exercise program Store Protection Specialist Goal (LTG) Pt to demonstrate ability to correctly perform four home exercises without instruction in order to display independence with HEP LTG Duration 09/29/25 Assessment Summary Assessment Pt presents w 2/10 R shoulder pain. She reports catching w OH motions. Symptoms improved w multiplanar exercises to engage SA and infraspinatus for improved shoulder stability and scapular-humeral rhythm. Physical Therapy Plan Frequency and Duration Frequency of 2x/Week Treatment Plan of Care Start 07/01/25 Date Plan of Care End 09/29/25 Date
--- NOTE | 2025-08-30 10:16 | PT-OP ANOTE ---
Pt did not show up to her 08/30 appointment. Therapist phoned and left a voicemail noting missed appointment and reminder of next scheduled visit.
--- NOTE | 2025-09-09 15:15 | PT.OTN ---
Current Diagnoses Impingement syndrome of right shoulder (09/09/25) Physical Therapy Treatment Note PT OP: Cervical/Upper Extremity Start: 07/01/25 11:33 Freq: Status: Active Protocol: Document 09/09/25 14:35 SP (Rec: 09/09/25 14:35 SP [id number]) Out-Patient Physical Therapy Visit Information Visit Information Visit Type Treatment Note Visit Start Time 14:35 Visit Stop Time 15:15 Visit Number 9 Number of IRONER Visits 1 Progress Note Due 07/31/25 OP-PT Subjective Patient Comments Patient Comments Pt report likes the new resistant exercises given last Tx. She states still has most challenge reaching across her body as though buckling her seat belt and end range reaching over head still limited. Shoulder Goniometric Range of Motion Shoulder Right Active Shoulder ROM WFL No Testing Position Sitting Flexion 151 Extension 68 Abduction 155 External Rotation at 63 0 degrees Abduction Internal Rotation T11 Behind Back (text) Left Active Testing Position Sitting Flexion 170 Extension 68 Abduction 180 External Rotation at 80 0 degrees Abduction Internal Rotation T8 Behind Back (text) Comments Almost full range Therapeutic Exercises Sitting Exercises Eccentric Flexion Sitting Exercise Eccentric FF & ABD- added to HEP with HO Name Side right Resistance Tb #3>2 Equipment Used over head rear facing Reps/Minutes 10 Comments cued slow eccentri OH raise cervical stretches Sitting Exercise reviewed 1. UT 2. LS 3. Scalenes Name Side bilateral Reps/Minutes 30 ea Comments cues chin tuck, breath Standing Exercises Shoulder IR with Towel Standing Exercise added to HEP (declined HO) Name Side bilateral Resistance AAROM behind back Equipment Used towel support Reps/Minutes 15 sec x3 Comments cued level shld, front mirror, ease into tension not into pain biceps curls Standing Exercise HEP reviewed Name Side bilateral Resistance 5# DB Reps/Minutes 10 Comments cued to keep shoulders down and back w/slight ER SA wall climb Resistance AROM then trialed as last tx lvl3 TB Reps/Minutes 5x2 Comments cued to keep arms parallel in order to engage SA and infra Shoulder Flexion Standing Exercise Shoulder Flexion (w hor abduction) Name Side bilateral Resistance lvl 1 Reps/Minutes 15x2 Comments initial cues scap setting, chin tuck Physical Therapy Assessment Goals Two Impairment Limited right shoulder mobility (flexion 118?, abduction 98?) Snf Goal (LTG) Pt to demonstrate right shoulder flexion and abduction AROM to >135? in order to improve activities requiring overhead reach 09/09/25: GOAL MET R shld 151 deg FF, 155 ABD, 63 deg ER , still Limited IR behind back T11. LTG Duration 09/29/25 GOAL MET 09/09/25 One Impairment Pt does not have an appropriate home exercise program Budget Report Clerk Goal (LTG) Pt to demonstrate ability to correctly perform four home exercises without instruction in order to display independence with HEP 09/09/25: progressing HEP, cues for set up and proper scapular and neck alignment. Progressing: standing wall glides, Resisted FF, bicep curls, added eccentric FF & ABD rear facing with TB and standing IR with towel support for ROM progression. LTG Duration 09/29/25 progressing 09/09/25 Assessment Summary Assessment PT Sandy attended tx, including feedback on how pt feel progressing overall since starting PT. Pt has made great gains in ROM overall, gained approx 32 deg FF and 57 deg ABD. Still limited end range RUE FF and ABD 150s deg, reports of some catching motion feeling end feel in GH Jt but low level pain. Cues needed for CS retraction and scapular inferior glide to assist overhead reach progression during HEP with decreased UT , neck and scapular compensations. Would benefit from continued PT progress ROM and strength to support getting items out of her cupboard and reaching across trunk to fasten her seatbelt with less pain. Physical Therapy Plan Frequency and Duration Frequency of 2x/Week Treatment Plan of Care Start 07/01/25 Date Plan of Care End 09/29/25 Date Therapeutic Interventions Therapeutic Home Exercise Program,Joint Mobilizations,Manual Interventions Therapy,Neuromuscular Re-education,Patient/Caregiver Education,Self-Care/Home Management,Soft Tissue Mobilization,Therapeutic Activities,Therapeutic Exercises Modalities Cold Pack/Ice Massage,Electric Stimulation,Hot Packs, Ultrasound Next Visit Focus/Plan Next Note Type Treatment Note Next Visit Plan PT Sandy to complete PN today. Check benefit from continued POC next tx into Oct. POC: Shoulder strengthening, joint mobs, STM, stretching, SA wall climbs
--- NOTE | 2025-09-10 13:55 | PT.OPPN ---
Current Diagnoses Impingement syndrome of right shoulder (09/09/25) Physical Therapy Progress Note PT OP: Cervical/Upper Extremity Start: 07/01/25 11:33 Freq: Status: Active Protocol: Document 09/10/25 13:46 JVD (Rec: 09/10/25 13:54 JVD [id number]) Out-Patient Physical Therapy Visit Information Visit Information Visit Type Progress Note Visit Start Time 14:35 Visit Stop Time 15:15 Visit Number 9 Number of CREAM MAKER Visits 1 Progress Note Due 10/10/25 OP-PT Subjective Patient Comments Patient Comments Pt report likes the new resistant exercises given last Tx. She states still has most challenge reaching across her body as though buckling her seat belt and end range reaching over head still limited. Shoulder Goniometric Range of Motion Shoulder Measured in Degrees Right Active Shoulder ROM WFL No Testing Position Sitting Flexion 151 Extension 68 Abduction 155 External Rotation at 63 0 degrees Abduction Internal Rotation T11 Behind Back (text) Left Active Testing Position Sitting Flexion 170 Extension 68 Abduction 180 External Rotation at 80 0 degrees Abduction Internal Rotation T8 Behind Back (text) Comments Almost full range Physical Therapy Assessment Goals Two Impairment Limited right shoulder mobility (flexion 118?, abduction 98?) Oriental Rug Repairer Goal (LTG) Pt to demonstrate right shoulder flexion and abduction AROM to >135? in order to improve activities requiring overhead reach 09/09/25: GOAL MET R shld 151 deg FF, 155 ABD, 63 deg ER , still Limited IR behind back T11. LTG Duration 09/29/25 GOAL MET 09/09/25 One Impairment Pt does not have an appropriate home exercise program Oriental Rug Repairer Goal (LTG) Pt to demonstrate ability to correctly perform four home exercises without instruction in order to display independence with HEP 09/09/25: progressing HEP, cues for set up and proper scapular and neck alignment. Progressing: standing wall glides, Resisted FF, bicep curls, added eccentric FF & ABD rear facing with TB and standing IR with towel support for ROM progression. LTG Duration 09/29/25 progressing 09/09/25 Assessment Summary Assessment Pt is progressing well. She demonstrates improved shoulder mobility and strength w reduced pain. She continues to have pain when reaching across her body, such as to put a seatbelt on. Pt has made great gains in ROM overall, gained approx 32 deg FF and 57 deg ABD. Still limited end range RUE FF and ABD 150s deg, reports of some catching motion feeling end feel in GH Jt but low level pain. Cues needed for CS retraction and scapular inferior glide to assist overhead reach progression during HEP with decreased UT, neck and scapular compensations. Would benefit from continued PT progress ROM and strength to support getting items out of her cupboard and reaching across trunk to fasten her seatbelt with less pain. Physical Therapy Plan Frequency and Duration Frequency of 2x/Week Treatment Plan of Care Start 07/01/25 Date Plan of Care End 09/29/25 Date Next Visit Focus/Plan Next Note Type Treatment Note Next Visit Plan Check benefit from continued POC next tx into Oct. POC: Shoulder strengthening, joint mobs, STM, stretching, SA wall climbs
--- NOTE | 2025-09-14 16:01 | PT.OTN ---
Current Diagnoses Impingement syndrome of right shoulder (09/14/25) Physical Therapy Treatment Note PT OP: Cervical/Upper Extremity Start: 07/01/25 11:33 Freq: Status: Active Protocol: Document 09/14/25 15:17 DCW (Rec: 09/14/25 16:01 DCW [id number]) Out-Patient Physical Therapy Visit Information Visit Information Visit Type Treatment Note Visit Start Time 15:17 Visit Stop Time 16:00 Visit Number 10 Number of CHILD PSYCHOLOGIST Visits 0 Progress Note Due 10/10/25 OP-PT Subjective Patient Comments Patient Comments Today's it's been kind of sore, notes she has an exercise class Tuesdays, still struggles with overhead exercises, especially when holding weight. Still notes she is very pleased with how much better it is, I can put up with it now. Therapeutic Exercises Standing Exercises Horizontal Abduction Standing Exercise Horizontal Abduction /c Flexion, then diagonals Name Side bilateral Resistance Lv 2 PNF Standing Exercise UE PNF D1/D2 Name Side right Resistance 2# Shoulder Abduction Standing Exercise Shoulder Abduction Name Side right Resistance Lv 2 Shoulder ER/IR Standing Exercise seated B ER Name Resistance lvl 2 Manual Therapy Treatment Consent Patient gave verbal Yes consent for manual treatment Soft Tissue Mobilization R UT, pec post cuff Body Location UT, proximal bieps, pecs Mobilization Type Cross-Friction,Rolling,Sustained Pressure Intensity/Depth Superficial Body Position Sitting Joint Mobilizations scapular mobilization Joint R Direction into dep and add Grade III Body Position Sitting R shoulder Joint GH AP and inf Direction w passive ER, flex, and abd Grade III Body Position Sitting Physical Therapy Assessment Goals Two Impairment Limited right shoulder mobility (flexion 118?, abduction 98?) Engineer Goal (LTG) Pt to demonstrate right shoulder flexion and abduction AROM to >135? in order to improve activities requiring overhead reach 09/09/25: GOAL MET R shld 151 deg FF, 155 ABD, 63 deg ER , still Limited IR behind back T11. LTG Duration 09/29/25 GOAL MET 09/09/25 One Impairment Pt does not have an appropriate home exercise program Engineer Goal (LTG) Pt to demonstrate ability to correctly perform four home exercises without instruction in order to display independence with HEP 09/09/25: progressing HEP, cues for set up and proper scapular and neck alignment. Progressing: standing wall glides, Resisted FF, bicep curls, added eccentric FF & ABD rear facing with TB and standing IR with towel support for ROM progression. LTG Duration 09/29/25 progressing 09/09/25 Assessment Summary Assessment Pt continues to progress well, feeling much better with nearly all movements, although does not continued pain with buckling seatbelt. Did have similar pain with D2 UE PNF movements, however was able to perform pain-free by the end of her session. Physical Therapy Plan Frequency and Duration Frequency of 2x/Week Treatment Plan of Care Start 07/01/25 Date Plan of Care End 09/29/25 Date Therapeutic Interventions Therapeutic Home Exercise Program,Joint Mobilizations,Manual Interventions Therapy,Neuromuscular Re-education,Patient/Caregiver Education,Self-Care/Home Management,Soft Tissue Mobilization,Therapeutic Activities,Therapeutic Exercises Modalities Cold Pack/Ice Massage,Electric Stimulation,Hot Packs, Ultrasound Next Visit Focus/Plan Next Note Type Treatment Note Next Visit Plan Check benefit from continued POC next tx into Oct. POC: Shoulder strengthening, joint mobs, STM, stretching, SA wall climbs
--- NOTE | 2025-09-16 10:29 | PT.OTN ---
Current Diagnoses Impingement syndrome of right shoulder (09/16/25) Physical Therapy Treatment Note PT OP: Cervical/Upper Extremity Start: 07/01/25 11:33 Freq: Status: Active Protocol: Document 09/16/25 09:51 SP (Rec: 09/16/25 09:58 SP [id number]) Out-Patient Physical Therapy Visit Information Visit Information Visit Type Treatment Note Visit Start Time 09:51 Visit Stop Time 10:29 Visit Number 11 Number of PASSENGER SERVICE MANAGER Visits 1 Progress Note Due 10/10/25 OP-PT Subjective Patient Comments Patient Comments Pt reports her R shld is pretty stiff and uncomfortable at arrival. Thinks needs more appts into end Sep but will talk with PT at 09/22 appt if need to continue into Oct. Therapeutic Exercises Sidelying Exercises open book Sidelying Exercise added to HEP Name Side bilateral Resistance AROM Reps/Minutes 10 reps, breath end feel last 2 reps for ribcage mobility Comments good feedback response shld mobility with no pain, actually improved Standing Exercises Wall Slide with Ys off Wall Standing Exercise Trialed in PT with ed postural alignment & TA for Name decrease LB compensations Side bilateral Resistance AROM Reps/Minutes 8 reps Comments cued PPT neutral with TA engagement, improved no LB strain tension Shoulder Abduction Standing Exercise Shoulder Abduction to 90- 148 deg Name Side right Resistance 2# DB Equipment Used front of mirror Reps/Minutes 10 x2 reps Comments 90 deg 1st set, full ROM 2nd set feels like a normal shoulder, mm tiring Shoulder Flexion Standing Exercise Shld FF 90deg>140 deg Name Side bilateral Resistance 2# DB Equipment Used front of mirror Reps/Minutes 10x2 Comments 90 deg 1st set, full ROM 2nd set feels like a normal shoulder, mm tiring Shoulder Extension Standing Exercise Shoulder Extension Name Side bilateral Resistance Tb #4 dark blue Reps/Minutes 15x2 Comments cued elbows straight Shoulder ER/IR Standing Exercise Standing: ER Name Side bilateral Resistance lvl 3 Equipment Used towel roll under arm Reps/Minutes 2x10 reps single arm Comments cued stable trunk & scap Manual Therapy Treatment Consent Patient gave verbal Yes consent for manual treatment Joint Mobilizations scapular mobilization Joint R Direction into depression and add Grade III Body Position L SL Comments AAROM and AROM tactile cues R shoulder Joint scap and GH AP and inf Direction w passive ER, flex, and abd Body Position Standing Comments tactile cues during ther ex improved decreased GH clicking Physical Therapy Assessment Goals Two Impairment Limited right shoulder mobility (flexion 118?, abduction 98?) Senior Administrative Assistant Goal (LTG) Pt to demonstrate right shoulder flexion and abduction AROM to >135? in order to improve activities requiring overhead reach 09/09/25: GOAL MET R shld 151 deg FF, 155 ABD, 63 deg ER , still Limited IR behind back T11. LTG Duration 09/29/25 GOAL MET 09/09/25 One Impairment Pt does not have an appropriate home exercise program Senior Living Goal (LTG) Pt to demonstrate ability to correctly perform four home exercises without instruction in order to display independence with HEP 09/09/25: progressing HEP, cues for set up and proper scapular and neck alignment. Progressing: standing wall glides, Resisted FF, bicep curls, added eccentric FF & ABD rear facing with TB and standing IR with towel support for ROM progression. LTG Duration 09/29/25 progressing 09/09/25 Assessment Summary Assessment Pt improved decrease R GH clicking with tactile cuing scap stabilization and GH inferior glide. Educational cues for PPT neutral LS during standing humeral FF and ABD ther ex improved core stabilization and decreased LS discomfort compensations. Utilized postural HO for trunk flexion posture added gravity applied to head increases strain in spine, improved self corrections. REports good muscle tiring in UEs end tx and no clicking in R shld end tx. Physical Therapy Plan Frequency and Duration Frequency of 2x/Week Treatment Plan of Care Start 07/01/25 Date Plan of Care End 09/29/25 Date Therapeutic Interventions Therapeutic Home Exercise Program,Joint Mobilizations,Manual Interventions Therapy,Neuromuscular Re-education,Patient/Caregiver Education,Self-Care/Home Management,Soft Tissue Mobilization,Therapeutic Activities,Therapeutic Exercises Modalities Cold Pack/Ice Massage,Electric Stimulation,Hot Packs, Ultrasound Next Visit Focus/Plan Next Note Type Treatment Note Next Visit Plan Assess if adding more appts passeed 09/29/25, if so update POC. POC: Shoulder strengthening, joint mobs, STM, stretching, SA wall climbs
--- NOTE | 2025-09-20 11:33 | PT.OTN ---
Current Diagnoses Impingement syndrome of right shoulder (09/20/25) Physical Therapy Treatment Note PT OP: Cervical/Upper Extremity Start: 07/01/25 11:33 Freq: Status: Active Protocol: Document 09/20/25 10:48 SP (Rec: 09/20/25 11:36 SP [id number]) Out-Patient Physical Therapy Visit Information Visit Information Visit Type Treatment Note Visit Start Time 10:48 Visit Stop Time 11:33 Visit Number 12 Number of NURSING COORDINATOR Visits 2 Progress Note Due 10/10/25 OP-PT Subjective Patient Comments Patient Comments Pt reports was busy on computer over the weekend last min school project, due tonight. She mentioned only R UT muscle got sore but not bad. Usually is reclined with head supported on couch using computer. Pt's told her he was impressed she can put pants on standing. She states is still hard to clasp seat belt with RUE, has to use LUE and reach back to seat belt as passengar, wants to work on this motion in PT. Therapeutic Exercises Standing Exercises Shld ABD with ER Standing Exercise added to HEP with HO Name Side right Resistance TB #1 peach (teal home) Reps/Minutes 8 reps Comments occasional cues for maintain humerus 90d eg, limit UT compensation Shld ABD with IR Standing Exercise added to HEP with HO Name Side right Resistance Tb #3 quileute green Reps/Minutes 8 reps Comments occasional cues for maintain humerus 90d eg, allow eccenric reutrn stre. ER Wall Slide with Ys off Wall Standing Exercise reviewed for HEP Name Side bilateral Resistance AROM Reps/Minutes 10 reps Comments cued PPT neutral with TA engagement, improved no LB strain tension Horizontal Abduction Standing Exercise 1. HABD 2. HABD /c Flexion 3. Diagonals Name Side bilateral Resistance Lv 2 TB Equipment Used back and head on wall 1st set, front of mirror 2nd set Reps/Minutes 10 Comments cued limit UT recruitment with slow pacing, like reach back for wall PNF Standing Exercise UE PNF D1& D2 Flex with TB, DB ext Name Side right Resistance 2#DB Reps/Minutes 10 each direction Comments cued think about reaching for target end feel Shoulder IR with Towel Standing Exercise reviewed Name Side right Resistance AAROM behind back Equipment Used towel support, front of mirror Reps/Minutes 15 sec x3 Comments reviewed level shld, front mirror, ease into tension not into pain Physical Therapy Assessment Goals Two Impairment Limited right shoulder mobility (flexion 118?, abduction 98?) Cream Hauler Goal (LTG) Pt to demonstrate right shoulder flexion and abduction AROM to >135? in order to improve activities requiring overhead reach 09/09/25: GOAL MET R shld 151 deg FF, 155 ABD, 63 deg ER , still Limited IR behind back T11. LTG Duration 09/29/25 GOAL MET 09/09/25 One Impairment Pt does not have an appropriate home exercise program Residential Goal (LTG) Pt to demonstrate ability to correctly perform four home exercises without instruction in order to display independence with HEP 09/09/25: progressing HEP, cues for set up and proper scapular and neck alignment. Progressing: standing wall glides, Resisted FF, bicep curls, added eccentric FF & ABD rear facing with TB and standing IR with towel support for ROM progression. LTG Duration 09/29/25 progressing 09/09/25 Assessment Summary Assessment Tx focused on challenging motions per pt still hasn't return to, resisted cross body D2 flexion and abd 90deg with IR and eccentric ER and abd with ER to support strength clasping seat belt and reaching back for seat belt still some discomfort. Cues as needed for head and postural alignment. Physical Therapy Plan Frequency and Duration Frequency of 2x/Week Treatment Plan of Care Start 07/01/25 Date Plan of Care End 09/29/25 Date Therapeutic Interventions Therapeutic Home Exercise Program,Joint Mobilizations,Manual Interventions Therapy,Neuromuscular Re-education,Patient/Caregiver Education,Self-Care/Home Management,Soft Tissue Mobilization,Therapeutic Activities,Therapeutic Exercises Modalities Cold Pack/Ice Massage,Electric Stimulation,Hot Packs, Ultrasound Next Visit Focus/Plan Next Note Type Treatment Note Next Visit Plan Assess if adding more appts passed 09/22/25, if so update POC and add more appts passed 09/29/25. If doing well with HEP and returned to all activiteis can DC next tx. POC: Shoulder strengthening, joint mobs, STM, stretching, SA wall climbs
--- NOTE | 2025-09-22 12:58 | PT.OPDS ---
Current Diagnoses Impingement syndrome of right shoulder (09/22/25) Visit Care Team Role Provider Type Omar Tillman MD Family Provider Physician Primary Care Provider Specialty: Family Practice Address: [address] [place] [address], [id number] Email: [email or web address] Ajit Zavala MD Attending Provider Physician Referring Provider Specialty: Orthopedics Orthopedic Surgery Address: [address] [place] [address], [id number] Email: [email or web address] Visit Number Visit Number 13 Discharge Summary PT OP: Cervical/Upper Extremity Start: 07/01/25 11:33 Freq: Status: Active Protocol: Document 09/22/25 12:15 DCW (Rec: 09/22/25 12:58 DCW [id number]) Out-Patient Physical Therapy Visit Information Visit Information Visit Type Treatment Note Visit Start Time 12:15 Visit Stop Time 13:00 Visit Number 13 Number of SOLAR MANAGER Visits 0 Progress Note Due 10/10/25 Evaluation Information Evaluation Date 07/01/25 OP-PT Subjective Patient Comments Patient Comments Do I still have shoulder pain? Yeah, some, but it's not to the level that I'd like to get an injection or have surgery or anything, I can largely ignore it at this point. Shoulder Goniometric Range of Motion Shoulder Right Active Shoulder ROM WFL No Testing Position Sitting Flexion 153 Extension 64 Abduction 154 External Rotation at 63 0 degrees Abduction Internal Rotation T11 Behind Back (text) Left Active Testing Position Sitting Flexion 170 Extension 68 Abduction 180 External Rotation at 80 0 degrees Abduction Internal Rotation T8 Behind Back (text) Comments Almost full range Special Tests Shoulder Special Tests Passive ER Rotator Cuff Test Results Mildly Positive R Painful Arc Test Results Negative Lift-Off Rotator Cuff Test Results Negative Mercer Abelino Impingement Test Results Negative Grind Labrum Test Results Negative Empty Can Test Results Negative Drop Arm Rotator Cuff Test Results Negative Clunk Test Test Results Negative Belly Press Test Results Negative Apprehension Test Test Results Mildly Positive R Therapeutic Exercises Standing Exercises Horizontal Abduction Standing Exercise 1. HABD 2. HABD /c Flexion 3. Diagonals Name Side bilateral Resistance Lv 3 PNF Standing Exercise UE PNF D1/D2 Flexion Name Side right Resistance 2# Shoulder Abduction Standing Exercise Shoulder Abduction Name Side bilateral Resistance 2# Shoulder Flexion Standing Exercise Shoulder Flexion Name Side bilateral Resistance 2# Shoulder ER/IR Standing Exercise Standing: ER Name Side bilateral Resistance Lv 3 Physical Therapy Assessment Impairments Impairments Activity Tolerance,Functional Activities,Functional Mobility,Pain,ROM,Soft Tissue Mobility,Strength,Tone Goals Two Impairment Limited right shoulder mobility (flexion 118?, abduction 98?) Assisted Goal (LTG) Pt to demonstrate right shoulder flexion and abduction AROM to >135? in order to improve activities requiring overhead reach 09/09/25: GOAL MET R shld 151 deg FF, 155 ABD, 63 deg ER , still Limited IR behind back T11. LTG Duration Met One Impairment Pt does not have an appropriate home exercise program Pattern Drum Maker Goal (LTG) Pt to demonstrate ability to correctly perform four home exercises without instruction in order to display independence with HEP 09/09/25: progressing HEP, cues for set up and proper scapular and neck alignment. Progressing: standing wall glides, Resisted FF, bicep curls, added eccentric FF & ABD rear facing with TB and standing IR with towel support for ROM progression. LTG Duration Met Assessment Summary Assessment Pt overall feeling much better, feeling good about her HEP. Notes she knows that she can return in the future if needed, but is feeling that she is at the point she can ignore or maintain her current level. Agreeable to discharge at this time. Physical Therapy Plan Frequency and Duration Frequency of 2x/Week Treatment Plan of Care Start 07/01/25 Date Plan of Care End 09/29/25 Date Therapeutic Interventions Therapeutic Home Exercise Program,Joint Mobilizations,Manual Interventions Therapy,Neuromuscular Re-education,Patient/Caregiver Education,Self-Care/Home Management,Soft Tissue Mobilization,Therapeutic Activities,Therapeutic Exercises Modalities Cold Pack/Ice Massage,Electric Stimulation,Hot Packs, Ultrasound Discharge Physical Therapy Discharge Reasons Goals Met Discharge Comments D/C to independent HEP. Next Visit Focus/Plan Next Note Type Discharge Summary
== END 2025-09-23 09:29 | disposition home or self-care (01) ==
LOC: PHYS 12:15
PROVIDERS: Family Provider Family Medicine; PCP Family Medicine; Referring Provider Orthopaedic Surgery Adult Reconstructive Orthopaedic Surgery; Visit Provider Orthopaedic Surgery Adult Reconstructive Orthopaedic Surgery
DX: M75.41 Impingement syndrome of right shoulder (principal)
CPT/HCPCS: 97110; 97140; 97163; 97535